=== PATIENT | female | born 1980 | race Caucasian/White ===

== ENCOUNTER 2021-07-14 13:13 | Emergency (ER) | payer MEDICAID ==
[~2021-07-14] VITALS: Ht 157.5 cm; Wt 100.0 kg
[2021-07-14] MEDS ORDERED: SODIUM CHLORIDE 0.9% 1,000 ML IV ONE (16:15)
[2021-07-14] MEDS ORDERED: INSULIN REGULAR (HUMULIN R) 300UNITS/3ML VIAL SUBCUT ONE (16:45)
[2021-07-14 16:52] LABS: BASOPHILS % 0.6 % (0.0-2.0); EOSINOPHILS % 1.5 % (0.0-5.0); HEMATOCRIT. 30.3 % (36.0-48.0); HEMOGLOBIN. 9.2 g/dL (12.0-16.0); LYMPHOCYTES % 26.2 % (20.0-50.0); MEAN CORPUSCULAR VOLUME 66.1 fL (81.0-99.0); MEAN PLATELET VOLUME 9.1 fl (7.4-10.4); MONOCYTES % 7.2 % (2.0-8.0); NEUTROPHILS % 64.5 % (40.0-76.0); PLATELET 267 x1000/uL (130-400); RED BLOOD CELL COUNT 4.59 mill/uL (4.2-5.4); RED CELL DISTRIBUTION WIDTH 19.5 % (11.6-14.6)
[2021-07-14 16:55] LABS: CLARITY URINE CLEAR (CLEAR); COLOR URINE YELLOW (YELLOW); KETONES URINE NEGATIVE (NEGATIVE); LEUKOCYTE ESTERASE URINE TRACE (NEGATIVE); NITRITE URINE NEGATIVE (NEGATIVE); OCCULT BLOOD URINE 1+ (NEGATIVE); PH URINE 6.5 (4.5-8.0); PROTEIN URINE NEGATIVE (NEGATIVE); SPECIFIC GRAVITY URINE 1.036 (1.005-1.030)
[2021-07-14 16:58] LABS: CHLORIDE 104 mEq/L (98-107)
[2021-07-14 17:07] LABS: BETA HYDROXYBUTYRATE 0.1 mMol/L (0.0-0.3); PLATELET ESTIMATE NORMAL
[2021-07-14 19:10] VITALS: BP 124/68
== END 2021-07-14 19:12 | disposition home or self-care (01) ==
LOC: ER 13:13
DX: E11.65 Type 2 diabetes mellitus with hyperglycemia (principal); Z79.4 Long term (current) use of insulin; I10 Essential (primary) hypertension; D64.9 Anemia, unspecified
CPT/HCPCS: 36415; 80053; 81003; 82010; 82962; 83690; 85025; 96360; 96372; 99283; J1815; J7030

== ENCOUNTER 2024-02-10 13:59 | Emergency (ER) | payer MEDICAID ==
[~2024-02-10] VITALS: Ht 160 cm; Wt 123.0 kg
[2024-02-10 14:13] VITALS: TEMP 98.3; O2SAT 100
[2024-02-10] MEDS: KETOROLAC 30MG/ML VIAL IM ONE (15:59)
[2024-02-10] MEDS: DIPHENHYDRAMINE 50MG/ML VIAL IM ONE (15:59)
[2024-02-10] MEDS: METOCLOPRAMIDE HCL 10MG/2ML VIAL IM ONE (15:59)
[2024-02-10] MEDS: CLONIDINE 0.1MG TABLET PO ONE (17:38)
[2024-02-10 17:39] VITALS: BP 150/82; PULSE 82; RESP 16; O2SAT 99
[2024-02-10] MEDS ORDERED: IBUP-2029 MT (17:59)
== END 2024-02-10 18:29 | disposition home or self-care (01) ==
LOC: ER 14:13
DX: G43.909 Migraine, unspecified, not intractable, without status migrainosus (principal); E11.9 Type 2 diabetes mellitus without complications; I10 Essential (primary) hypertension; Z98.890 Other specified postprocedural states
CPT/HCPCS: 81025; 70450; 96372; 99285; J1200; J1885; J2765; Z7610